=== PATIENT | female | born 1975 | race Caucasian/White ===

== ENCOUNTER → 2018-01-30 | Outpatient (CLI) | payer OTHER | LOC: CIMAGING 10:09 | PROVIDERS: ATTEND Obstetrics & Gynecology | DX: Z12.31 Encounter for screening mammogram for malignant neoplasm of breast (principal) ==

== ENCOUNTER → 2018-02-12 | Outpatient (CLI) | payer OTHER | LOC: CIMAGING 13:03 | PROVIDERS: ATTEND Obstetrics & Gynecology | DX: N60.02 Solitary cyst of left breast (principal) | CPT/HCPCS: 76641-PO ==

== ENCOUNTER 2018-02-20 21:53 | Emergency (ER) | payer OTHER ==
--- NOTE | 2018-02-20 22:34 | EDPHY ---
H & P Time Seen by Provider: 02/20/18 22:09 HPI/ROS: HPI Chest discomfort. 42-year-old female by private vehicle. She reports that last night after dinner she developed which she describes as a tightness sensation in her left upper anterior chest. She states that it persisted through the evening and then seemed to go away when she went to bed. She reports that today she was bothered by it intermittently and more so tonight. No associated shortness of breath. She does not have any cardiac risk factors. No obesity. No history of diabetes, hypertension, hyperlipidemia. She does not smoke. She does not have any significant family history of coronary artery disease. ROS: Constitutional: No fever, no chills. No weakness. Respiratory: No cough. No shortness of breath. Cardiac: As above, no palpitations. Gastrointestinal: No abdominal pain, no vomiting, no diarrhea. Musculoskeletal: No back pain. No neck pain. No myalgias or arthralgias. Skin: No rashes. Neurological: No headache. No focal weakness or altered sensation. Past medical history: Hypothyroid. She takes Synthroid. Denies any other significant past medical history. She is prescribed testosterone cream. She tells me she takes this because her levels are low. Social history: Nonsmoker. No alcohol. Currently here by herself. Physical Exam: General Appearance: Alert, no distress. This patient is responding to questions appropriately and in full sentences. This patient appears well- hydrated and well-nourished. Eyes: Pupils equal and round no pallor or injection. No lid edema, erythema or injection. Respiratory: There are no retractions, lungs are clear to auscultation with good air movement bilaterally. Cardiovascular: Regular rate and rhythm. No murmur. Gastrointestinal: Abdomen is soft and nontender, no masses, bowel sounds normal. No focal tenderness at McBurney's point. No Bose sign. Neurological: Motor sensory function is grossly intact. Cranial nerves are normal. Gait is normal. Skin: Warm and dry, no rashes. Musculoskeletal: Neck is supple and nontender. Extremities are symmetrical. All joints range without pain or impingement. Psychiatric: No agitation. No depression. Database: EKG: EKG time is 8:07 p.m.; EKG shows a narrow complex normal sinus rhythm with a ventricular rate of 86. The NC, QRS, QT intervals are within normal limits. There are no ST-T wave changes indicative of ischemic or injury pattern. No evidence of right heart strain. Interpreted by me. Imaging: Chest x-ray AP portable; the cardiac mediastinal silhouette is unremarkable. No evidence of infiltrate or pneumothorax. No acute cardiopulmonary disease process noted. Interpreted by me. Procedures: Emergency department course: Her vital signs were reviewed and are normal. EKG obtained and reviewed by myself. Her heart score is 0-1. This puts her at low risk for a major adverse cardiac event. She currently does not have any chest pain or discomfort. 10:50 p.m., patient re-evaluated, resting comfortably at this time. She denies any chest pain or other complaints. Results of her emergency department workup discussed. I explained the heart score. She feels comfortable going home and I feel she is safe for discharge. The patient competently engages in shared decision making. They demonstrate capacitance to make decisions. I will have her follow up with Conner Mark in the next 2-3 days for re-evaluation. She is in agreement with this plan. Return to emergency department precautions discussed with her. All of her questions were answered. She was discharged in good condition. Differential Diagnosis: The differential diagnosis on this patient includes but is not limited to esophageal spasm, pleurisy, costochondritis. Acute coronary syndrome, pulmonary embolism, aortic dissection, myocarditis, pericarditis unlikely. This represents a partial list of diagnoses considered. These considerations are based on history, physical exam, past history, reassessment and diagnostic testing. Smoking Status: Never smoked Constitutional: Initial Vital Signs Temperature (C) 37.0 C 02/20/18 21:58 Heart Rate 86 02/20/18 21:58 Respiratory Rate 16 02/20/18 21:58 Blood Pressure 124/81 H 02/20/18 21:58 O2 Sat (%) 94 02/20/18 21:58 O2 Delivery Mode Room Air Allergies/Adverse Reactions: No Known Allergies Allergy (Unverified 02/20/18 22:00) Home Medications: Medication Instructions Recorded Synthroid 02/20/18 Testosterone 02/20/18 Medical Decision Making - Diagnostics Imaging Results: Imaging Impressions Chest X-Ray 02/20/18 21:56 Impression: No acute findings in the chest. Departure - Departure Disposition: Home, Routine, Self-Care Clinical Impression: Chest discomfort Condition: Good Instructions: Chest Pain (ED) Additional Instructions: Read and follow provided instructions. Follow-up with Conner Mark, our cardiology group in the next 2-3 days for re- evaluation and further testing as discussed. Return to the emergency department for worsening pain, shortness of breath or other serious concerns. Referrals: Conner Mark [Provider Group] - As per Instructions
--- NOTE | 2018-02-20 22:50 | CPEKG ---
Test Reason : OPEN Blood Pressure : / mmHG Vent. Rate : 086 BPM Atrial Rate : 086 BPM P-R Int : 152 ms QRS Dur : 083 ms QT Int : 373 ms P-R-T Axes : 036 020 055 degrees QTc Int : 446 ms Sinus rhythm Confirmed by Hillary Bingham ([id number]) on 02/20/2018 10:49:44 PM Referred By: Confirmed By:Hillary Bingham
[2018-02-20 23:19] VITALS: BP 122/78
== END 2018-02-20 23:21 | disposition home or self-care (01) ==
LOC: CED 21:53
DX: R07.89 Other chest pain (principal); E03.9 Hypothyroidism, unspecified; Z79.899 Other long term (current) drug therapy
CPT/HCPCS: 71045-PO; 82435-PO; 82565-PO; 82947-PO; 84132-PO; 84295-PO; 84484-PO; 84520-PO; 85014-PO